=== PATIENT | female | born 1955 | race Hispanic/Latino ===

== ENCOUNTER 2017-09-13 01:11 | Emergency (ER) | payer OTHER ==
[2017-09-13 02:28] LABS: #Basophils 0.1 thou/uL (0.0-0.2); #Eosinphils 0.1 thou/uL (0.0-0.7); #Monocytes 0.7 thou/uL (0.11-0.59); #Neutrophils 5.3 thou/uL (1.40-6.50); %Basophils 0.9 % (0.0-1.0); %Eosinophils 1.6 % (0.0-10.0); %Lymphocytes 32.7 % (21.0-51.0); %Monocytes 7.1 % (0.0-10.0); %Neutrophils 57.6 % (42.0-75.0); Hemoglobin 13.9 g/dL (12.0-16.0); Mean Corpuscular HGB CONC 33.8 g/dL (32.0-36.0); Mean Corpuscular Hemoglobin 29.8 pg (27.0-31.0); Mean Corpuscular Volume 88.2 fl (81.0-99.0); Mean Platelet Volume 7.5 fL (7.4-10.4); Platelet Count 283 thou/uL (130-400); RBC Distribution Width 12.1 % (11.5-14.5); Red Blood Cell (RBC) Count 4.65 mill/uL (4.20-5.40); White Blood Cell (WBC) Count 9.2 thou/uL (4.8-10.8)
[2017-09-13 03:00] LABS: ALT (SGPT) 40 U/L (8-55); AST (SGOT) 27 U/L (5-34); Albumin 4.6 g/dL (3.5-5.0); Alkaline Phosphatase 129 U/L (40-150); Anion Gap 19 mmol/L (10-20); BUN (Urea Nitrogen) 11 mg/dL (9.8-20.1); Bilirubin, Total 0.4 mg/dL (0.2-1.2); Calc. Creatinine Clearance 0 mL/min (70-130); Carbon Dioxide 18 mmol/L (22-29); Chloride 105 mmol/L (98-107); Estimated GFR-MDRD 80; Glucose 228 mg/dL (70-105); Lipase 31 U/L (8-78); Protein, Total 7.6 g/dL (6.0-8.3); Sodium 138 mmol/L (136-145)
[2017-09-13 03:45] LABS: Bilirubin Negative (Negative); Blood, Urine Large (Negative); Clarity CLEAR (Clear); Glucose, Urine (Dipstick) Negative (Negative); Leukocyte Small (Negative); Nitrite Negative (Negative); Protein, Urine (Dipstick) 100 mg/dL (Neg-Trace); Urobilinogen 0.2 mg/dL (0.2-1.0)
[2017-09-13 03:53] LABS: Bacteria/HPF None Seen HPF (None Seen); Hyaline Casts/LPF 0-3 HYALINE CAST LPF (0-3 Hyaline); Pathc Cast-AUWi Flag 0.14 (0-2.49); RBC/HPF GREATER THAN 50-TNTC HPF (0-3); Squamous Epithelial 0-3 HPF (0-3)
[2017-09-13] MEDS ORDERED: Ketorolac Tromethamine 30 MG/ML VIAL ONE (03:59)
--- NOTE | 2017-09-13 08:02 | CT ---
PRELIMINARY REPORT/[facility]/EMERGENCY AFTER HOURS PROCEDURE: EXAM: CT Abdomen and Pelvis Without Intravenous Contrast EXAM DATE/TIME: Exam ordered 09/13/2017 3:42 AM CLINICAL HISTORY: 61 years old, female; Pain; Abdominal pain; Generalized; Patient HX: No previous. Er 3. . . Pt C/O ab dominal pain upper that began approx. 32 [employer]. No nausea and vomiting. Reports urinating blood. TECHNIQUE: Axial computed tomography images of the abdomen and pelvis without intravenous contrast. Coronal reformatted images were created and reviewed. COMPARISON: No relevant prior studies available. FINDINGS: Lower thorax: No acute findings. ABDOMEN: Liver: Hepatic steatosis. Gallbladder and bile ducts: Unremarkable. No calcified stones. No ductal dilation. Pancreas: Unremarkable. No ductal dilation. Spleen: Unremarkable. No splenomegaly. Adrenals: Unremarkable. No mass. Kidneys and ureters: There is an 8mm long axis by 3-4 mm short axis obstructing stone in the distal l eft ureter causing mild obstructive uropathy. Stomach and bowel: Unremarkable. No obstruction. No mucosal thickening. Appendix: Normal appendix. PELVIS: Bladder: Unremarkable. No stones. Reproductive: Unremarkable as visualized. ABDOMEN and PELVIS: Intraperitoneal space: Unremarkable. No free air. No significant fluid collection. Bones/joints: No acute fracture. No dislocation. Soft tissues: Unremarkable. Vasculature: Unremarkable. No abdominal aortic aneurysm. Lymph nodes: Unremarkable. No enlarged lymph nodes. IMPRESSION: There is an 8mm long axis by 3-4 mm short axis obstructing stone in the distal left ureter causing mi ld obstructive uropathy. Thank you for allowing us to participate in the care of your patient. Dictated and Authenticated by: Adi Espinal MD 09/13/2017 4:11 AM Central Time ([place] & [place]) FINAL REPORT CT ABDOMEN AND PELVIS NONCONTRAST: DATE: 09/13/17. TIME: Performed on an emergency basis at 0343 hours. HISTORY: Left flank pain. FINDINGS: Findings agree with the preliminary report from [facility]. There is partial obstruction at a distal left ureteral calculus. Cortical calcification is also associated with the left kidney. Lac k of contrast decreases sensitivity of exam for other abnormalities. POS: [facility]
--- NOTE | 2017-10-10 14:22 | EKG ---
Test Reason : ABDOMINAL PAIN Blood Pressure : / mmHG Vent. Rate : 072 BPM Atrial Rate : 072 BPM P-R Int : 178 ms QRS Dur : 092 ms QT Int : 376 ms P-R-T Axes : 065 046 050 degrees QTc Int : 411 ms Normal sinus rhythm with sinus arrhythmia Septal infarct , age undetermined Abnormal ECG Confirmed by MARKY Guillory, DENISE ([id number]), photography editor DIAZ SMALLWOOD ([id number]) on 10/10/2017 2:21:26 PM Referred By: MARKY Confirmed By:DENIES NEGRO M.D.
== END 2017-09-13 05:14 ==
LOC: ERS 01:11
DX: N20.1 Calculus of ureter (principal); E78.5 Hyperlipidemia, unspecified; F32.9 Major depressive disorder, single episode, unspecified; E11.9 Type 2 diabetes mellitus without complications; E05.90 Thyrotoxicosis, unspecified without thyrotoxic crisis or storm
CPT/HCPCS: 36415; 74176; 80053; 81003; 81015; 83690; 85025; 87086; 93005; 96361; 96374; J1885

== ENCOUNTER 2017-10-15 08:44 | Outpatient (CLI) | payer OTHER | END 2017-10-15 08:45 | disposition home or self-care (01) | LOC: BICULT 08:44 | PROVIDERS: ATTEND Family Medicine | DX: R10.9 Unspecified abdominal pain (principal); K76.0 Fatty (change of) liver, not elsewhere classified | CPT/HCPCS: 76700 ==

== ENCOUNTER 2017-11-17 08:17 | Day surgery (SDC) | payer OTHER ==
[2017-11-17] MEDS ORDERED: Iothalamate Meglumine 60% 50 ML VIAL FS ONE (08:37)
[2017-11-17 09:25] LABS: Hemoglobin 13.6 g/dL (12.0-16.0); Mean Corpuscular HGB CONC 33.4 g/dL (32.0-36.0); Mean Corpuscular Hemoglobin 29.2 pg (27.0-31.0); Mean Corpuscular Volume 87.5 fl (81.0-99.0); Platelet Count 297 thou/uL (130-400); RBC Distribution Width 12.2 % (11.5-14.5); Red Blood Cell (RBC) Count 4.65 mill/uL (4.20-5.40); White Blood Cell (WBC) Count 9.7 thou/uL (4.8-10.8)
[2017-11-17] MEDS ORDERED: CEFAZOLIN/Water 2 GM/20 ML SYRINGE ONE (09:44)
[2017-11-17 09:52] LABS: Anion Gap 14 mmol/L (10-20); BUN (Urea Nitrogen) 14 mg/dL (9.8-20.1); Calc. Creatinine Clearance 0 mL/min (70-130); Calcium 9.7 mg/dL (7.8-10.44); Carbon Dioxide 26 mmol/L (22-29); Chloride 104 mmol/L (98-107); Estimated GFR-MDRD 86; Glucose 143 mg/dL (70-105); Potassium 3.9 mmol/L (3.5-5.1); Sodium 140 mmol/L (136-145)
[2017-11-17] MEDS ORDERED: Fentanyl 100 MCG/2 ML VIAL ONE (10:10)
[2017-11-17] MEDS ORDERED: Famotidine/PF 20 mg/2ml Vial ONE ×2 (10:10→15:25)
[2017-11-17] MEDS ORDERED: Ondansetron HCl/PF 4 MG/2 ML Vial ONE ×2 (10:10→16:14)
[2017-11-17 11:53] LABS: Bilirubin Negative (Negative); Blood, Urine Moderate (Negative); Clarity CLEAR (Clear); Glucose, Urine (Dipstick) Negative (Negative); Leukocyte Negative (Negative); Nitrite Negative (Negative); Protein, Urine (Dipstick) Negative (Neg-Trace); Specific Gravity, Urine 1.009 (1.002-1.036); Urobilinogen 0.2 mg/dL (0.2-1.0)
[2017-11-17 11:55] LABS: Bacteria/HPF None Seen HPF (None Seen); Hyaline Casts/LPF 0-3 HYALINE CAST LPF (0-3 Hyaline); Pathc Cast-AUWi Flag 0.58 (0-2.49); RBC/HPF 21-50 HPF (0-3); Squamous Epithelial 0-3 HPF (0-3); WBC/HPF 0-3 HPF (0-3)
[2017-11-17 12:18] LABS: Crystals/HPF None Seen HPF (Negative); Oval Fat Bodies/HPF None Seen HPF (None Seen); Renal Epithelial None Seen HPF (0-3); Transitional Epithelial NONE SEEN HPF (0-3); Trichomonas/HPF None Seen HPF (None Seen)
--- NOTE | 2017-11-17 12:28 | OP ---
DATE OF PROCEDURE: 11/17/2017 PREOPERATIVE DIAGNOSIS: Left ureteral stone. POSTOPERATIVE DIAGNOSIS: Left ureteral stone. PROCEDURE: Cystoscopy, ureteroscopy, holmium laser lithotripsy, stone basketing, stent placement 6 x 26 double-J. SPECIMENS: Urine from the left renal pelvis and stone. COMPLICATIONS: No complications. DRAINS REMAININ x 26 double-J with a string. INDICATIONS: The patient is a 61-year-old inmate who presented to me after being seen in the ER with a left ureteral stone, I followed her and ultimately she did not pass this so we set her up for defi nitive therapy. TECHNIQUE: The patient was brought to the room by anesthesia, laid on the table in supine position a fter receiving general anesthetic. Legs placed in lithotomy position and her perineum was prepped an d draped in sterile fashion with the left leg lower and the right leg elevated. Cystoscopy was perfo rmed. The bladder was inspected and was without lesions. The left ureteral orifice was intubated wi th the aid of a wire and then the Pollack catheter advanced to the renal pelvis where hydronephrotic drip was noted. Ten mL of urine was extracted and diluted with saline to send for both microanalysis and culture, then measurements were taken for a 6 x 26 double-J to be used at the end. The wire was placed back in, the Pollack catheter removed and then a dilating sheath was used to dilate the urete ral orifice to a maximum pressure of 12 mmHg. This was taken down and removed in its entirety and th en the scope was broken apart and the bladder drained and removed carefully leaving the wire in place that was coiled at her urethra. Then, the rigid ureteroscope was used to go up to the level of the stone which was in the mid ureter near the crossing vessels. Laser lithotripsy was used to bust it u p in multiple fragments. These were grasped and brought out through the urethral meatus and sent for specimen. The final path showed a very small stone fragment that slipped through the basket and shamir t was the only thing remaining, otherwise it was cleared and that was inspected all the way up to the proximal ureter. So at this point ureteroscope was removed. The cystoscope was back fed over the w deena and a 6 x 26 double-J was placed with good coil visualized in the renal pelvis via fluoroscopy an d a good coil visualized in the bladder via cystoscopy. Scope was broken apart carefully. Bladder d rained and removed leaving the string intact, which was then secured to her suprapubic area.
[2017-11-17] MEDS ORDERED: HYDROcodone/Acetaminophen 5/325 mg Tablet ONE (13:25)
[2017-11-17] MEDS ORDERED: Oxybutynin 5 MG TAB ONE (15:01)
[2017-11-17] MEDS ORDERED: Phenazopyridine HCl 97.5 MG TABLET ONE ×2 (15:03→15:25)
[2017-11-17] MEDS ORDERED: Promethazine HCl 25 MG/ML VIAL ONE (15:28)
[2017-11-17] MEDS ORDERED: B & O ONE (15:38)
[2017-11-17] MEDS ORDERED: Morphine 4 MG/ML VIAL ONE (15:39)
--- NOTE | 2017-11-17 15:49 | EKG ---
Test Reason : PREOP Blood Pressure : / mmHG Vent. Rate : 066 BPM Atrial Rate : 066 BPM P-R Int : 180 ms QRS Dur : 090 ms QT Int : 390 ms P-R-T Axes : 057 033 050 degrees QTc Int : 408 ms Normal sinus rhythm Normal ECG Confirmed by LURDES IRVING ([id number]) on 11/17/2017 3:49:40 PM Referred By: MIKE Confirmed By:LURDES IRVING
[2017-11-17] MEDS ORDERED: Lidocaine 1% PF 5 ML VIAL ONE (16:14)
[2017-11-17] MEDS ORDERED: PROPOFOL 200 MG/20 ML VIAL ONE (16:14)
[2017-11-20 10:21] LABS: CA Oxalate Dihydrate 20 % (.); CA Oxalate Monohydrate 77 % (.); Color Tan (.); Stone Weight 30.1 mg (.)
== END 2017-11-17 18:05 | disposition home or self-care (01) ==
LOC: SDC 08:17
PROVIDERS: ATTEND Urology
PROC: 0TC78ZZ Extirpation of Matter from Left Ureter, Via Natural or Artificial Opening Endoscopic (ICD-10-PCS; principal; 2017-11-17)
PROC: 0T778ZZ Dilation of Left Ureter, Via Natural or Artificial Opening Endoscopic (ICD-10-PCS; principal; 2017-11-17)
PROC: 0T778DZ Dilation of Left Ureter with Intraluminal Device, Via Natural or Artificial Opening Endoscopic (ICD-10-PCS; principal; 2017-11-17)
DX: N20.1 Calculus of ureter (principal); E11.9 Type 2 diabetes mellitus without complications; I10 Essential (primary) hypertension; E78.00 Pure hypercholesterolemia, unspecified; E07.9 Disorder of thyroid, unspecified; Z86.73 Personal history of transient ischemic attack (TIA), and cerebral infarction without residual deficits; Z79.82 Long term (current) use of aspirin; Z79.84 Long term (current) use of oral hypoglycemic drugs; Z79.899 Other long term (current) drug therapy; Z88.8 Allergy status to other drugs, medicaments and biological substances
CPT/HCPCS: 76000; 80048; 81001; 82365; 85027; 87086; 88300; 93005; 93010; 96374; C1758; J0131; J2001; J2270; J2405; J2550; J2704; J3010; Q9961; S0028

== ENCOUNTER 2017-11-20 09:26 | Emergency (ER) | payer OTHER ==
[2017-11-20] MEDS ORDERED: Ketorolac Tromethamine 30 MG/ML VIAL ONE (09:56)
[2017-11-20] MEDS ORDERED: Morphine 4 MG/ML VIAL ONE (09:56)
[2017-11-20 10:00] LABS: #Basophils 0.1 thou/uL (0.0-0.2); #Eosinphils 0.1 thou/uL (0.0-0.7); #Lymphocytes 3.3 thou/uL (1.20-3.40); #Monocytes 0.6 thou/uL (0.11-0.59); #Neutrophils 4.8 thou/uL (1.40-6.50); %Basophils 0.9 % (0.0-1.0); %Eosinophils 1.7 % (0.0-10.0); %Lymphocytes 36.8 % (21.0-51.0); %Neutrophils 53.6 % (42.0-75.0); Hemoglobin 13.6 g/dL (12.0-16.0); Mean Corpuscular HGB CONC 32.9 g/dL (32.0-36.0); Mean Corpuscular Hemoglobin 29.2 pg (27.0-31.0); Mean Corpuscular Volume 88.9 fl (81.0-99.0); Mean Platelet Volume 7.3 fL (7.4-10.4); Platelet Count 283 thou/uL (130-400); RBC Distribution Width 12.1 % (11.5-14.5); Red Blood Cell (RBC) Count 4.66 mill/uL (4.20-5.40); White Blood Cell (WBC) Count 8.9 thou/uL (4.8-10.8)
[2017-11-20 10:19] LABS: ALT (SGPT) 43 U/L (8-55); AST (SGOT) 25 U/L (5-34); Albumin 4.5 g/dL (3.5-5.0); Alkaline Phosphatase 126 U/L (40-150); Anion Gap 16 mmol/L (10-20); BUN (Urea Nitrogen) 7 mg/dL (9.8-20.1); Bilirubin, Total 0.8 mg/dL (0.2-1.2); Calc. Creatinine Clearance 0 mL/min (70-130); Calcium 9.9 mg/dL (7.8-10.44); Carbon Dioxide 22 mmol/L (22-29); Chloride 103 mmol/L (98-107); Estimated GFR-MDRD 77; Globulin 3.1 g/dL (2.4-3.5); Glucose 207 mg/dL (70-105); Lipase 22 U/L (8-78); Potassium 3.7 mmol/L (3.5-5.1); Protein, Total 7.6 g/dL (6.0-8.3); Sodium 137 mmol/L (136-145)
[2017-11-20 10:22] LABS: Bilirubin Negative (Negative); Blood, Urine Large (Negative); Clarity CLEAR (Clear); Glucose, Urine (Dipstick) Negative (Negative); Leukocyte Negative (Negative); Nitrite Negative (Negative); Protein, Urine (Dipstick) 30 mg/dL (Neg-Trace); Specific Gravity, Urine 1.007 (1.002-1.036); Urobilinogen 0.2 mg/dL (0.2-1.0); pH, Urine 7.5 (5.0-9.0)
[2017-11-20 10:24] LABS: Bacteria/HPF None Seen HPF (None Seen); Hyaline Casts/LPF 0-3 HYALINE CAST LPF (0-3 Hyaline); RBC/HPF GREATER THAN 50-TNTC HPF (0-3); Squamous Epithelial None Seen HPF (0-3); WBC/HPF 0-3 HPF (0-3)
--- NOTE | 2017-11-20 11:08 | CT ---
CT ABDOMEN NONCONTRAST CT PELVIS NONCONTRAST: (urolithiasis protocol) DATE: 11/20 HISTORY: 61-year-old female with left flank pain. COMPARISON: 09/13/17. TECHNIQUE: IV injection of iodinated contrast media: none Oral contrast media: none FINDINGS: Other than for urolithiasis, the lack of IV and oral contrast limits the evaluation. Previously, there was an approximately 8 x 4 mm calculus in the distal left ureter causing a mild lef t obstructive uropathy with mild left hydronephrosis. Currently, that 8 mm calculus is no longer pres ent in that location. Instead, there are additional calculi in the left ureter. For example, there ar e two calculi in the left mid ureter at the S1 level, one slightly superior to the other. The more in ferior one is approximately 2 x 2 mm, while the more superior one is 2 x 3 mm (better visualized on c oronal image 82 of 142, series 601). More distally, at the mid sacral, superior acetabular level, the re are two tiny calculi, with the larger one measuring 2 mm, and the smaller one approximately 1 mm ( axial images 65 and 66 of 92, series 2; coronal image 89 of 142, series 601). The entire left ureter is dilated. In fact, the ureter is dilated distal to the distalmost ureteral calculus, including at t he ureterovesical junction (axial image 72 of 92, series 2), but no calculus is visible at the left U VJ or within the urinary bladder. There is mild to moderate left hydroureter, and mild left hydroneph rosis that is worse than on 09/13/17. Again noted is the 3 x 4 x 3 mm calculus in the left renal mid pole anterolaterally. It is uncertain whether this is in the renal parenchyma or in a calyx. It is probably in the renal parenchyma. There is no calculus or hydronephrosis involving the right kidney or right ureter. Hepatic attenuation is d iffusely low consistent with fatty liver. Within the limitations of a noncontrast scan, no pathology is identified involving the abdominal aorta, right kidney, appendix, adrenals, pancreas, or spleen. N o small bowel dilation. No ascites or pneumoperitoneum. Lung bases are grossly clear. IMPRESSION: 1. Evidence for left obstructive uropathy at the left ureterovesical junction, with mild to moderate left hydroureteronephrosis, which is slightly worse than on previous CT of 09/13/17. 2. The previously demonstrated 8 mm calculus in the left distal ureter is no longer present. 3. Instead, there are several tiny calculi in the left mid and distal left ureter. 4. However, there is no calculus at the apparent point of obstruction, which is at the left ureterov esical junction. The cause of this partial obstruction is not evident. Recommend urologist consultati on. 5. Hepatic steatosis. 6. Solitary calcification within the left renal parenchyma. RACQUEL Montero POS: [facility]
== END 2017-11-20 12:29 | disposition home or self-care (01) ==
LOC: ERS 09:26
DX: N13.2 Hydronephrosis with renal and ureteral calculous obstruction (principal); F32.9 Major depressive disorder, single episode, unspecified; E05.90 Thyrotoxicosis, unspecified without thyrotoxic crisis or storm; E11.9 Type 2 diabetes mellitus without complications; E78.5 Hyperlipidemia, unspecified
CPT/HCPCS: 74176; 80053; 81003; 81015; 83690; 85025; 96361; 96374; 96375; J1885; J2270

== ENCOUNTER 2018-01-18 12:35 | Outpatient (CLI) | payer OTHER | END 2018-01-18 12:36 | disposition home or self-care (01) | LOC: BICULT 12:35 | PROVIDERS: ATTEND Family Medicine | DX: M17.11 Unilateral primary osteoarthritis, right knee (principal) ==

== ENCOUNTER 2018-05-10 08:09 | Outpatient (CLI) | payer OTHER ==
--- NOTE | 2018-05-10 10:12 | ULT ---
ULTRASOUND ABDOMEN: Date: 05/10/18 HISTORY: Abdominal pain. COMPARISON: CT dated 11/20/17. FINDINGS: Real-time Elias scale with color Doppler and spectral analysis of the abdomen was performed. Visualize d portions of the aorta and IVC are unremarkable. Visualized portions of the pancreas are unremarkabl e. Diffuse increased hepatic echotexture suggesting steatosis. No hepatic mass. Portal vein is patent. A ntegrade flow. Common bile duct is normal. Gallbladder is normal. The right kidney measures 10.6 x 4.0 x 4.5 cm with an inferior pole cyst, with a punctate peripheral calcification. Left kidney measures 10.4 x 5.6 x 5.2 cm. Sonographic Brady's sign is normal. The spleen measures 9.0 cm in length. IMPRESSION: 1. Diffuse increased hepatic echotexture suggesting steatosis. 2. No acute inflammatory process. 3. Cyst inferior pole right kidney with a punctate peripheral calculus. POS: [facility]
== END 2018-05-10 08:10 | disposition home or self-care (01) ==
LOC: BICULT 08:09
PROVIDERS: ATTEND Family Medicine
DX: R19.02 Left upper quadrant abdominal swelling, mass and lump (principal); N28.1 Cyst of kidney, acquired; N20.0 Calculus of kidney
CPT/HCPCS: 76700

== ENCOUNTER 2019-01-12 08:35 | Outpatient (CLI) | payer OTHER ==
--- NOTE | 2019-01-20 08:27 | MMO ---
Bilateral MAMMO Bilat Screen [facility]. CLINICAL HISTORY: Patient is 63 years old and is seen for screening. The patient has no family history of breast cancer. The patient has no personal history of cancer. VIEWS: The views performed were: bilateral craniocaudal and bilateral mediolateral oblique. FILMS COMPARED: The present examination has been compared to a prior imaging study performed at [facility] on 02/03/2017. This study has been interpreted with the assistance of computer-aided detection. MAMMOGRAM FINDINGS: The breasts are heterogeneously dense, which could obscure a lesion on mammography. There are stable benign appearing calcifications seen in both breasts. There are no suspicious masses, suspicious calcifications, or new areas of architectural distortion. IMPRESSION: THERE IS NO MAMMOGRAPHIC EVIDENCE OF MALIGNANCY. A ROUTINE FOLLOW-UP MAMMOGRAM IN 1 YEAR IS RECOMMENDED. ACR BI-RADS Category 2 - Benign finding MAMMOGRAPHY NOTE: 1. A negative mammogram report should not delay a biopsy if a dominant of clinically suspicious mass is present. 2. Approximately 10% to 15% of breast cancers are not detected by mammography. 3. Adenosis and dense breasts may obscure an underlying neoplasm.
== END 2019-01-12 08:36 | disposition home or self-care (01) ==
LOC: SCSMAMMO 08:35
PROVIDERS: ATTEND Family Medicine
DX: Z12.31 Encounter for screening mammogram for malignant neoplasm of breast (principal)
CPT/HCPCS: 77067